=== PATIENT | female | born 1955 | race Two or more races ===

== ENCOUNTER 2025-02-03 06:15 | Day surgery (SDC) | payer OTHER, SELFPAY ==
[2025-01-24 14:00] VITALS: BMI 34.3
[2025-01-24 14:28] LABS: Hematocrit 42.3 % (37.0-47.0); Hemoglobin 14.4 g/dL (12.0-16.0); Mean Corp Hgb Conc. 34.0 g/dL (33.0-37.0); Mean Corpuscular Volume 85.5 fL (81.0-99.0); Platelet Count 248 10^3/uL (130-400); Red Cell Dist. Width 12.7 % (11.5-14.5)
[2025-01-24 14:41] LABS: ALT (SGPT) 20 U/L (0-35); AST (SGOT) 22 U/L (14-36); Albumin 4.6 g/dl (3.5-5.0); Alkaline Phosphatase 83 U/L (38-126); Blood Urea Nitrogen 13 mg/dl (7-17); Calcium 10.0 mg/dl (8.4-10.2); Carbon Dioxide 32 mmol/L (22-30); Chloride 95 mmol/L (98-107); Estimated Creatinine Clearance 80 ml/min; Glucose 92 mg/dl (70-99); Potassium 4.1 mmol/L (3.5-5.1); Sodium 134 mmol/L (135-145); Total Protein 7.0 g/dl (6.3-8.2); eGFR > 60.00
--- NOTE | 2025-01-24 18:04 | PTCARENOTE ---
Abnormal ECG (dated 01/24/2025) reviewed by Dr. Montoya. No further orders at this time.
[2025-01-25 08:29] LABS: Glycohemoglobin (HgbA1c) 6.2 % (4.0-5.9)
[2025-01-27 13:51] VITALS: BMI 34.3
[2025-02-03] VITALS (12 sets, daily range): BP systolic 107–147; BP diastolic 59–90; BMI 34.3
[2025-02-03] MEDS: CELEBREX 200 MG PO (08:29)
[2025-02-03] MEDS: BACTROBAN NASAL 1 GRAM NASAL (08:31)
[2025-02-03] MEDS: NORMOSOL-R/PLASMALYTE-A 1000 IV (08:34)
[2025-02-03 08:36] LABS: Glucose - Point of Care 111 mg/dl (70-99)
[2025-02-03 11:44] LABS: Glucose - Point of Care 132 mg/dl (70-99)
[2025-02-03] MEDS: DILAUDID 0.5 MG IV ×2 (12:15→12:35)
[2025-02-03] MEDS: ANCEF 5 IV (14:51)
--- NOTE | 2025-02-03 15:07 | W.DS.TRANS ---
DC Summary - Maintenance Analyst
-
Discharge Instructions:
Discharge Diagnosis/Procedures L GERALDINE See 02/03/25
Diet Diabetic, Carb Controlled
Activity No strenuous activity
Driving Restrictions No driving
Instructions:
Stand-Alone Forms: SDS Total Shoulder D/C Inst.
Changes to Home Medications: Yes
Discharge Medications:
DC Medications w/original date entered in [facility]
albuterol sulfate 90 mcg/actuation aerosol inhaler 2 puff inhalation TID wheeze 01/27/25
atorvastatin 01/27/25
bupropion HCl 300 mg 24 hr tablet, extended release 300 mg PO DAILY 01/27/25
cyanocobalamin (vitamin B-12) 50 mcg tablet 50 mcg PO DAILY 01/27/25
famotidine 40 mg PO DAILY 01/27/25
fluticasone propionate 50 mcg/actuation nasal spray,suspension 2 spray intranasal DAILY 01/27/25
ipratropium bromide 42 mcg (0.06 %) nasal spray 2 spray intranasal QID 01/27/25
latanoprost 0.005 % eye drops 1 drp RIGHT EYE HS 01/27/25
metformin 1,000 mg tablet 1,000 mg PO BID 01/27/25
montelukast 10 mg tablet 10 mg PO HS 01/27/25
potassium chloride 20 mEq tablet,extended release 20 meq PO DAILY 01/27/25
triamterene 37.5 mg-hydrochlorothiazide 25 mg tablet 1 tab PO DAILY 01/27/25
calcium 1 dose PO DAILY 01/29/25
cholecalciferol (vitamin D3) 25 mcg (1,000 unit) capsule (Vitamin D3) 25 mcg PO DAILY 01/29/25
acetaminophen 325 mg tablet (Tylenol) 650 mg (2 x 325 mg) PO QID #0 tabs 02/03/25
aspirin 325 mg tablet 325 mg PO DAILY blood clot prevention #1 tab 02/03/25
docusate sodium 100 mg capsule (Colace) 100 mg PO BID stool softner #1 cap 02/03/25
ibuprofen 200 mg tablet 200 mg PO BID #0 tabs 02/03/25
irbesartan 75 mg tablet 75 mg PO DAILY #0 tabs 02/03/25
magnesium hydroxide 400 mg/5 mL oral suspension (Milk of Magnesia) 30 ml PO HS PRN constipation #1 mL 02/03/25
oxycodone-acetaminophen 10 mg-325 mg tablet (Percocet) 1 tab PO Q6H PRN moderate-severe pain #30 tabs 02/03/25
sennosides 8.6 mg tablet (Senokot) 17.2 mg (2 x 8.6 mg) PO BID laxative #2 tabs 02/03/25
Home Medication Changes
aspirin 325 mg tablet 325 mg PO DAILY blood clot prevention #1 tab 02/03/25
docusate sodium 100 mg capsule (Colace) 100 mg PO BID stool softner #1 cap 02/03/25
ibuprofen 200 mg tablet 200 mg PO BID #0 tabs 02/03/25
irbesartan 75 mg tablet 75 mg PO DAILY #0 tabs 02/03/25
magnesium hydroxide 400 mg/5 mL oral suspension (Milk of Magnesia) 30 ml PO HS PRN constipation #1 mL 02/03/25
oxycodone-acetaminophen 10 mg-325 mg tablet (Percocet) 1 tab PO Q6H PRN moderate-severe pain #30 tabs 02/03/25
sennosides 8.6 mg tablet (Senokot) 17.2 mg (2 x 8.6 mg) PO BID laxative #2 tabs 02/03/25
Pending Results: No
== END 2025-02-03 15:00 | disposition home or self-care (01) ==
LOC: SDS 06:15
PROVIDERS: ATTENDING PHYSICIAN Orthopaedic Surgery Hand Surgery; FAMILY PHYSICIAN Internal Medicine
DX: S42.302A Unspecified fracture of shaft of humerus, left arm, initial encounter for closed fracture (principal); W18.30XA Fall on same level, unspecified, initial encounter; M19.012 Primary osteoarthritis, left shoulder
CPT/HCPCS: 24515; C1713; 36415; 73060; 76000; 80053; 82962; 83036; 85027; 87070; 93005